=== PATIENT | female | born 1955 | race Caucasian/White ===

== ENCOUNTER → 2021-04-28 | Outpatient (CLI) | payer BC ==
[~2021-04-28] MED LIST: LIPITOR10 MG PO
== END ==
LOC: SJCVCIMAG 08:54
PROVIDERS: ATTEND Internal Medicine
DX: I08.1 Rheumatic disorders of both mitral and tricuspid valves (principal); R01.1 Cardiac murmur, unspecified; R06.00 Dyspnea, unspecified; Z87.74 Personal history of (corrected) congenital malformations of heart and circulatory system

== ENCOUNTER → 2021-04-29 | Outpatient (CLI) | payer BC ==
[~2021-04-29] VITALS: Ht 162.6 cm; Wt 58.6 kg
[2021-04-29 07:58] VITALS: BP 119/72
--- NOTE | 2021-04-29 09:29 | TEE ---
[facility] [place] [address] TRANSESOPHAGEAL ECHOCARDIOGRAM Name: JARROD DELGADILLO [id number] Admission: 04/29/21 Attend Phys: Cristofer Eugene MD, Discharge: Date of : 59 Report #: [id number] THIS REPORT FOR: cc: Milton Penny Louis D. DO Lundgren, Craig H. MD [facility] ~ APPROVED REPORT Study performed: 04/29/2021 08:12:20 EXAM: Transesophageal Echocardiogram Patient Location: Out-Patient Status: routine BSA: 1.63 HR: 61 bpm BP: 128/81 mmHg Rhythm: Sinus arrhythmia Other Information Study Quality: Good Indications Mitral regurgitation, bicuspid Ao valve. Procedure After obtaining informed consent, patient underwent transesophageal echo in the [employer]. Type of Sedation : Conscious Sedation Sedation was administered by Beth Sparks RN. Sedation start time: 821 Case end Time: 849 Sedation was achieved intravenously with: Versed (3.5) Fentanyl (50) Transesophageal probe was inserted and advanced into esophagus without difficulty by Cristofer Eugene MD. Echo enhancement indication: R/O Septal defect. Echo enhancement agent administered: Agitated Saline The ANDRE was performed without complications. Throughout the procedure, the blood pressure, pulse oximetry, cardiac rhythm, and rate were monitored. The patient tolerated the procedure without adverse effects. Recovery from conscious sedation was uneventful and vital signs were stable. Left Ventricle [facility] [address] [place] [address] TRANSESOPHAGEAL ECHOCARDIOGRAM Name: JARROD DELGADILLO Room #: REG [facility]#: [id number] Admission: 04/29/21 Attend Phys: Cristofer Eugene, Discharge: Date of : 59 Report #: [id number] The left ventricle is normal size. There is normal LV segmental wall motion. There is normal left ventricular wall thickness. Left ventricular systolic function is normal. LVEF is 60-65%. Right Ventricle The right ventricle is normal size. The right ventricular systolic function is normal. Atria Left atrium is mildly dilated. No thrombus is visualized in the left atrium or appendage. The right atrium size is normal. No shunting by contrast bubble injection Aortic Valve Aortic valve is bicuspid. No aortic regurgitation Mild aortic stenosis per TTE 04/28/21. (JEZ 1.8cm2; PPG 17mmHg, MPG 10mmHg). Mitral Valve Nonspecific thickening of mitral leaflet tips. Difficult to characterize mitral regurgitation. Very eccentric, probably moderate to moderately severe mitral insufficiency. No evidence of mitral valve stenosis. Tricuspid Valve The tricuspid valve is normal in structure. Mild tricuspid regurgitation. Pulmonic Valve The pulmonary valve is normal in structure. Trace pulmonic regurgitation. Great Vessels The aortic root is normal in size. The ascending aorta is normal in size. IVC is normal in size and collapses >50% with inspiration. Pericardium There is no pericardial effusion. <Conclusion> Left ventricular systolic function is normal. LVEF is 60-65%. Left atrium is mildly dilated. No thrombus is visualized in the left atrium or appendage. The right atrium size is normal. No shunting by contrast bubble [facility] [address] [place] [address] TRANSESOPHAGEAL ECHOCARDIOGRAM Name: JARROD DELGADILLO Room #: REG [facility]#: [id number] Admission: 04/29/21 Attend Phys: Cristofer Eugene, Discharge: Date of : 59 Report #: [id number] injection Aortic valve is bicuspid. No aortic regurgitation or stenosis Nonspecific thickening of mitral leaflet tips. Difficult to characterize severity of mitral regurgitation. Very eccentric, probably moderate to moderately severe mitral insufficiency. The ascending aorta is normal in size. There is no pericardial effusion. <ELECTRONICALLY SIGNED> By: Cristofer Eugene MD, FACC 04/29/21928 8 8 Cristofer Eugene MD, FACC /INF
== END | disposition home or self-care (01) ==
LOC: CATH 07:09
PROVIDERS: ATTEND Internal Medicine
DX: I08.1 Rheumatic disorders of both mitral and tricuspid valves (principal); E78.00 Pure hypercholesterolemia, unspecified; Z96.642 Presence of left artificial hip joint; Z98.890 Other specified postprocedural states; Z79.899 Other long term (current) drug therapy; Z88.2 Allergy status to sulfonamides; Z88.0 Allergy status to penicillin

== ENCOUNTER → 2021-05-06 | Outpatient (CLI) | payer BC | LOC: SJCVCIMAG 09:28 | PROVIDERS: ATTEND Internal Medicine | DX: I08.1 Rheumatic disorders of both mitral and tricuspid valves (principal); R00.0 Tachycardia, unspecified; R06.00 Dyspnea, unspecified ==